=== PATIENT | male | born 1995 | race Caucasian/White ===

== ENCOUNTER 2021-05-27 16:00 | Emergency (ER) | payer OTHER ==
[~2021-05-27] VITALS: Ht 180.3 cm; Wt 59.0 kg
--- NOTE | 2021-05-27 16:00 | NUR ---
Trace mendes in [facility] - 05/27/21 at 1611 by VANNA Code Stroke activated by .
[2021-05-27] MEDS ORDERED: ACETAMINOPHEN 325 MG TABLET PO ONE (16:15)
[2021-05-27] MEDS ORDERED: LORAZEPAM 0.5 MG TABLET PO ONE (16:15)
[2021-05-27] MEDS ORDERED: ACETAMINOPHEN 325 MG TABLET ONE (16:21)
[2021-05-27] MEDS ORDERED: LORAZEPAM 0.5 MG TABLET ONE (16:22)
[2021-05-27 16:30] LABS: HEMATOCRIT 49.8 % (36.7-47.1); MEAN CORPUSCULAR HEMOGLOBIN 30.7 uug (23.8-33.4); MEAN CORPUSCULAR VOLUME 89.2 fL (73.0-96.2); PLATELET COUNT (AUTO) 282 K/uL (152-348)
[2021-05-27 16:34] LABS: POTASSIUM 3.7 mmol/L (3.5-5.1)
[2021-05-27] MEDS ORDERED: HYDR-500 GT (16:59)
--- NOTE | 2021-05-27 17:01 | NUR ---
Patient is resting comfortably on gurney while using his personal electronic device, NAD.
[2021-05-27 17:10] LABS: *AMPHETAMINE, URINE NEGATIVE (NEGATIVE); *CANNABINOID, URINE POSITIVE (NEGATIVE); *COCCAINE, URINE NEGATIVE (NEGATIVE); *OPIATE, URINE NEGATIVE (NEGATIVE); *PHENCYCLIDINE SCREEN,URINE NEGATIVE (NEGATIVE)
--- NOTE | 2021-05-27 17:10 | NUR ---
Patient discharged to home in stable condition with brisk steady gait. Written and verbal after care instructions given to patient. Patient verbalized understanding and compliance of instructions. Stressed follow up with primary doctor or return to ER for worsening s/s.
== END 2021-05-27 17:12 | disposition home or self-care (01) ==
LOC: ER 16:00
DX: F41.0 Panic disorder [episodic paroxysmal anxiety] (principal); R03.0 Elevated blood-pressure reading, without diagnosis of hypertension; R00.1 Bradycardia, unspecified; F17.290 Nicotine dependence, other tobacco product, uncomplicated
CPT/HCPCS: 36415; 71045; 85025; 93005